=== PATIENT | female | born 1985 | race Caucasian/White ===

== ENCOUNTER → 2017-06-22 | Outpatient (CLI) | payer MEDICAID | LOC: FIMAGING 14:34 | PROVIDERS: ATTEND Registered Nurse | DX: Z34.81 Encounter for supervision of other normal pregnancy, first trimester (principal) ==

== ENCOUNTER → 2017-08-16 | Outpatient (CLI) | payer MEDICAID | LOC: FIMAGING 10:17 | PROVIDERS: ATTEND Registered Nurse | DX: Z36.89 Encounter for other specified antenatal screening (principal) ==